=== PATIENT | female | born 1990 | race Caucasian/White ===

== ENCOUNTER 2016-08-02 13:36 | Emergency (ER) | payer OTHER ==
[2016-08-02 14:02] VITALS: BP 118/63
--- NOTE | 2016-08-02 14:30 | UC ---
Skin Complaint HPI - HPI Summary HPI Summary: For several weeks has had large sores on sides of scalp where she repeatedly rubs hair/head. Pt is IVDU, uses meth, seeking rehab services today. Does not know her HIV or Hep C status. Now had large lumps on back of neck at the base of skull. - History of Current Complaint Chief Complaint: UCGeneralIllness Time Seen by Provider: 08/02/16 13:52 Stated Complaint: LUMPS ON NECK Hx Obtained From: Patient Hx Last Menstrual Period: Mirena IUD ?: No Onset/Duration: Gradual Onset, Lasting Weeks Timing: Constant Onset Severity: Mild Current Severity: Mild Location: Discrete Character: Redness, Painful Alleviating: Nothing Associated Signs & Symptoms: Positive: Drainage - Allergy/Home Medications Allergies/Adverse Reactions: Allergies Allergy/AdvReac Type Severity Reaction Status Date / Time Morphine Allergy Anaphylatic Verified 08/02/16 13:51 Shock Review of Systems Constitutional: Negative Skin: Other - sores on head Eyes: Negative ENT: Negative Respiratory: Negative Cardiovascular: Negative Gastrointestinal: Negative Genitourinary: Negative Motor: Negative Neurovascular: Negative Musculoskeletal: Negative Neurological: Negative Psychological: Negative All Other Systems Reviewed And Are Negative: Yes PMH/Surg Hx/FS Hx/Imm Hx Endocrine History Of: Denies: Diabetes, Thyroid Disease, Hyperthyroidism, Hypothyroidism, Dyslipidemia Cardiovascular History Of: Denies: Cardiac Disorders, Hypertension, Pacemaker/ICD, Myocardial Infarction , Congestive Heart Failure, Atrial Fibrillation, Deep Vein Thrombosis, Bleeding Disorders Respiratory History Of: Reports: Asthma - as child Denies: COPD, Bronchitis, Pneumonia, Pulmonary Embolism GI/ History Of: Denies: Gastroesophageal Reflux, Ulcer, Gastrointestinal Bleed, Gall Bladder Disease, Kidney Stones, Diverticulitis, Renal Disease, Urosepsis Neurological History Of: Denies: TIA, CVA, Dementia, Seizures, Migraine Psychological History Of: Denies: Anxiety, Depression, Bipolar Disorder, Schizophrenia, Post Traumatic Stress Disorder Cancer History Of: Denies: Lung Cancer, Colorectal Cancer, Breast Cancer, Prostate Cancer, Cervical Cancer - Surgical History Surgical History: Yes Surgery Procedure, Year, and Place: Appendectomy, 1999, [facility] - Family History Known Family History: Positive: None, Unknown, Other - FMH of cold sores, both parents - Social History Alcohol Use: Occasionally Substance Use Type: Marijuana, Other Substance Use Comment - Amount & Last Used: daily-IV drugs/opiates/meth Smoking Status (MU): Heavy Every Day Tobacco Smoker Type: Cigarettes Amount Used/How Often: 1 PPD Length of Time of Smoking/Using Tobacco: 12 Years Have You Smoked in the Last Year: Yes Household Exposure Type: Cigarettes Cessation Counseling: Patient Advised to Stop - Immunization History Most Recent Influenza Vaccination: NONE Most Recent Tetanus Shot: UTD Most Recent Pneumonia Vaccination: N/A Physical Exam Triage Information Reviewed: Yes Appearance: No Pain Distress, Thin Vital Signs: Initial Vital Signs Temp 98.5 F 08/02/16 13:52 Pulse 85 08/02/16 13:52 Resp 18 08/02/16 13:52 BP 118/63 08/02/16 13:52 Pulse Ox 100 08/02/16 13:52 Vital Signs Reviewed: Yes Eye Exam: Normal Eyes: Positive: Conjunctiva Clear ENT Exam: Normal, Other - PERRL ENT: Positive: Normal ENT inspection, Hearing grossly normal, Pharynx normal, TMs normal Dental Exam: Normal Neck: Positive: Enlarged Nodes @ - occipital Respiratory Exam: Normal Respiratory: Positive: Chest non-tender, Lungs clear, Normal breath sounds, No respiratory distress, No accessory muscle use Cardiovascular Exam: Normal Cardiovascular: Positive: RRR, No Murmur Musculoskeletal Exam: Normal Musculoskeletal: Positive: ROM Intact Neurological Exam: Normal Neurological: Positive: Alert Psychological Exam: Normal Skin Exam: Other - bilat scalp parietal areas large ulcerations with some crust/ drainage, surrounding hair broken off close to the skin Course/Dx - Diagnoses Provider Diagnoses: 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 drug abuse disorder Discharge - Discharge Plan Condition: Stable Disposition: HOME Prescriptions: Mupirocin 2% OINT* [Bactroban 2 % Oint*] 1 applic TOPICAL TID #1 tube Sulfamethox/Trimethoprim DS* [Bactrim DS 800/160 TAB*] 1 tab PO BID #14 tab Patient Education Materials: Chronic Wounds (ED) Referrals: Jessica Alicia MD [Primary Care Provider] - [facility] [Outside] Additional Instructions: As we discussed, your sores will not be able to heal unless you are able to stop rubbing them. The prescriptions I have sent will help with your superimposed infection, but will not speed healing. Please work with your support network to get drug rehabilitation.
== END 2016-08-02 14:47 | disposition home or self-care (01) ==
LOC: UCCORT 13:36
DX: S00.00XA Unspecified superficial injury of scalp, initial encounter (principal); L08.9 Local infection of the skin and subcutaneous tissue, unspecified; X58.XXXA Exposure to other specified factors, initial encounter; Y93.9 Activity, unspecified; Y92.9 Unspecified place or not applicable; Z11.4 Encounter for screening for human immunodeficiency virus [HIV]; Z88.5 Allergy status to narcotic agent; F11.20 Opioid dependence, uncomplicated; F17.210 Nicotine dependence, cigarettes, uncomplicated
CPT/HCPCS: 36415; 86703; 86803; 99212; G0463

== ENCOUNTER 2016-09-13 12:10 | Emergency (ER) | payer OTHER ==
[2016-09-13 12:54] VITALS: BP 106/73
--- NOTE | 2016-09-13 13:23 | UC ---
Skin Complaint HPI - HPI Summary HPI Summary: 26 female presents with complaints of pruritic wounds with drainage to her scalp. Patient is an IV drug user and states she gets these wounds and she picks at them constantly. Patient has had MRSA in the past. She gets these wounds often and states these wounds have been on going and worsening over the past 6 months. She denies fever/chills, spreading of rash onto arms and legs, difficulty breathing and chest pain. Patient states she also needs several teeth pulled and this past weekend had one tooth break causing her pain and she thinks it is infected. Denies PMHx. Has not tried any medications for either complaint. - History of Current Complaint Chief Complaint: UCDentalProblem Time Seen by Provider: 09/13/16 12:44 Stated Complaint: PERSONAL Hx Obtained From: Patient Hx Last Menstrual Period: unknown ?: No Onset/Duration: Gradual Onset, Lasting Weeks, Worse Since Skin Exposure Onset/Duration: Weeks Ago Timing: Constant Onset Severity: Mild Current Severity: Mild Pain Intensity: 10 Pain Scale Used: 0-10 Numeric Location: Other - scalp Character: Pruritus, Redness, Painful Aggravating: Showering Alleviating: Nothing Associated Signs & Symptoms: Positive: Rash, Drainage. Negative: Difficulty Breathing, Fever, Chills Related History: Trauma - Allergy/Home Medications Allergies/Adverse Reactions: Allergies Allergy/AdvReac Type Severity Reaction Status Date / Time Morphine Allergy Anaphylatic Verified 09/13/16 12:48 Shock Home Medications: Home Medications Levonorgestrel (Iud) [Mirena IUD] 20 mcg IU ONCE 09/13/16 [History Confirmed ] Review of Systems Constitutional: Negative Skin: Rash, Other Eyes: Negative ENT: Dental Pain - left upper back molar Respiratory: Negative Cardiovascular: Negative Gastrointestinal: Negative Motor: Negative Neurovascular: Negative Musculoskeletal: Negative All Other Systems Reviewed And Are Negative: Yes PMH/Surg Hx/FS Hx/Imm Hx Previously Healthy: Yes - IV drug addict - Surgical History Surgical History: Yes Surgery Procedure, Year, and Place: Appendectomy, 1999, [facility] - Family History Known Family History: Positive: None, Unknown, Other - FMH of cold sores, both parents - Social History Alcohol Use: Occasionally Substance Use Type: Marijuana, Other Substance Use Comment - Amount & Last Used: daily-IV drugs/nikkie/meth Smoking Status (MU): Heavy Every Day Tobacco Smoker Type: Cigarettes Amount Used/How Often: 1 PPD Length of Time of Smoking/Using Tobacco: 12 Years Have You Smoked in the Last Year: Yes Household Exposure Type: Cigarettes - Immunization History Most Recent Influenza Vaccination: NONE Most Recent Tetanus Shot: UTD Most Recent Pneumonia Vaccination: N/A Vaccination Up to Date: Yes Physical Exam Triage Information Reviewed: Yes Appearance: Well-Appearing, No Pain Distress, Well-Nourished Vital Signs: Initial Vital Signs Temp 98.7 F 09/13/16 12:49 Pulse 88 09/13/16 12:49 Resp 16 09/13/16 12:49 BP 106/73 09/13/16 12:49 Pulse Ox 100 09/13/16 12:49 Vital Signs Reviewed: Yes Eyes: Positive: Conjunctiva Clear ENT: Positive: Normal ENT inspection, Hearing grossly normal, Pharynx normal Dental: Positive: Percussion Tenderness @, Gross Decay/Caries @, Dental Fracture @ - left upper back molar, appears infected, no sign of abscess- no erythema or drainage. Negative: Abscess @, Cervical Lymphadenopathy Neck: Positive: Supple, Nontender, No Lymphadenopathy Respiratory: Positive: Chest non-tender, Lungs clear, Normal breath sounds, No respiratory distress, No accessory muscle use Cardiovascular: Positive: RRR, No Murmur, Pulses Normal, Brisk Capillary Refill Abdomen Description: Positive: Nontender, Soft Bowel Sounds: Positive: Present Musculoskeletal: Positive: Strength Intact, ROM Intact, No Edema Neurological: Positive: Alert Skin: Positive: significant lesion(s) - 3 scaly macules and patches of broken hairs and alopecia on the scalp. inflammatory, erythematous papules and plaques. Clear drainage from wounds, all about the size of a quarter, appear infected. with positive MRSA history. no other rashes noted on rest of skin exam /fingernails Course/Dx - Course Course Of Treatment: Spoke with Dr Oliveros about treatment. Appears to be tinea capitis with bacterial infection as well. Also appears to have dental pain due to dental infection and fracture. She is making a dentist appointment. Given ibuprofen for pain, and bactrim for infection with positive MRSA history. Also strongly encouraged to be seen by PCP for oral treatment for tinea capitis as the symptoms have been on going for the past 6 months and PE findings resemble tinea capitus as well. Aware of worsening signs and symptoms and to return if symptoms persist or worsen. Follow up with PCP. Keep clean and dry, do not pick. Make an appointment with dentist. - Differential Diagnoses - Skin Complaint Differential Diagnoses: Cellulitis, Contact Dermatitis, MRSA, Tinea, Urticaria, Varicella Zoster, Viral Exanthem - Diagnoses Provider Diagnoses: Head rash w/ positive MRSA hx, Tinea capitis, Dental pain/ infection, IV drug user - Physician Notification/Consults Discussed Patient Care With: Dr Oliveros Discharge - Discharge Plan Condition: Stable Disposition: HOME Prescriptions: Ibuprofen TAB* [Motrin TAB* 600 MG] 600 mg PO Q6H PRN #30 tab PRN Reason: Pain Sulfamethox/Trimethoprim DS* [Bactrim DS 800/160 TAB*] 1 tab PO BID #20 tab Patient Education Materials: MRSA (Methicillin-Resistant Staphylococcus Aureus ) (ED), Tinea Capitis (ED), Toothache (ED) Referrals: Manuela Oswald MD [Primary Care Provider] - Additional Instructions: Take prescribed antibiotic as directed, until entire dose is finished, even if symptoms improve. Ibuprofen for pain and inflammation of dental pain/infection. Swish with salt water multiple times daily. Drink plenty of fluids and get plenty of rest. Try to stop picking at wounds. Keep hands and scalp clean and dry. Follow up with your primary care provider to be treated for tinea capitis/ fungal infection of your scalp if symptoms do not improve. If symptoms worsen such as fever/chills, or new symptoms develop please return/ seek medical attention promptly.
== END 2016-09-13 13:35 | disposition home or self-care (01) ==
LOC: UCCORT 12:10
DX: B35.0 Tinea barbae and tinea capitis (principal); Z86.14 Personal history of Methicillin resistant Staphylococcus aureus infection; Z72.0 Tobacco use; K04.7 Periapical abscess without sinus; F19.10 Other psychoactive substance abuse, uncomplicated
CPT/HCPCS: 99212; G0463